=== PATIENT | female | born 1960 | race Caucasian/White ===

== ENCOUNTER 2017-01-06 14:12 | Outpatient (CLI) ==
[2017-01-06 15:15] LABS: BASOPHILS # (AUTO) 0.1 K/uL (0-0.2); BASOPHILS % (AUTO) 0.8 % (0.0-3.0); EOSINOPHILS # (AUTO) 0.2 K/ul (0.0-0.7); HEMATOCRIT 36.3 % (37.0-47.0); HEMOGLOBIN 12.3 g/dl (12.0-16.0); IMMATURE GRANULOCYTE % (AUTO) 0.3 % (0.0-5.0); LYMPHOCYTES # (AUTO) 3.6 K/uL (0.60-3.4); LYMPHOCYTES % (AUTO) 38.2 (10.0-50.0); MEAN CORPUSCULAR HEMOGLOBIN 28.3 pg (27.0-31.0); MEAN CORPUSCULAR HGB CONC 33.9 (31.8-35.4); MEAN CORPUSCULAR VOLUME 83.6 fl (81.0-99.0); MONOCYTES # (AUTO) 0.8 K/uL (0.4-2.0); MONOCYTES % (AUTO) 8.8 (0-10); NEUTROPHILS # (AUTO) 4.8 K/ul (2.0-6.9); NEUTROPHILS % (AUTO) 49.9; PLATELET COUNT 332 10^3/uL (140-440); RED BLOOD COUNT 4.34 10^6/ul (4.20-5.40); WHITE BLOOD COUNT 9.54 K/ul (4.6-10.2)
== END 2017-01-06 14:13 | disposition home or self-care (01) ==
LOC: LAB 14:12
PROVIDERS: ATTEND Internal Medicine Hematology & Oncology
DX: E06.3 Autoimmune thyroiditis (principal); D75.1 Secondary polycythemia
CPT/HCPCS: 36415; 84443; 85025

== ENCOUNTER 2017-01-27 15:17 | Outpatient (CLI) ==
[2017-01-27 16:21] LABS: BASOPHILS # (AUTO) 0.1 K/uL (0-0.2); BASOPHILS % (AUTO) 0.5 % (0.0-3.0); EOSINOPHILS # (AUTO) 0.1 K/ul (0.0-0.7); EOSINOPHILS % (AUTO) 0.9 % (0.0-7.0); HEMATOCRIT 39.3 % (37.0-47.0); HEMOGLOBIN 12.9 g/dl (12.0-16.0); IMMATURE GRANULOCYTE % (AUTO) 0.2 % (0.0-5.0); LYMPHOCYTES # (AUTO) 3.1 K/uL (0.60-3.4); LYMPHOCYTES % (AUTO) 32.8 (10.0-50.0); MEAN CORPUSCULAR HEMOGLOBIN 27.3 pg (27.0-31.0); MEAN CORPUSCULAR HGB CONC 32.8 (31.8-35.4); MEAN CORPUSCULAR VOLUME 83.3 fl (81.0-99.0); MONOCYTES # (AUTO) 0.7 K/uL (0.4-2.0); MONOCYTES % (AUTO) 7.6 (0-10); NEUTROPHILS # (AUTO) 5.4 K/ul (2.0-6.9); PLATELET COUNT 378 10^3/uL (140-440); RED BLOOD COUNT 4.72 10^6/ul (4.20-5.40); WHITE BLOOD COUNT 9.29 K/ul (4.6-10.2)
[2017-01-27 16:26] LABS: BILIRUBIN,URINE Negative (NEGATIVE); KETONES,URINE Negative (NEGATIVE); LEUKOCYTE ESTERASE ,URINE Negative (NEGATIVE); NITRITE,URINE Negative (NEGATIVE); PH,URINE 5.5 (5-9); PROTEIN,URINE Negative (NEGATIVE); URINE, BLOOD Negative (NEGATIVE)
[2017-01-27 16:45] LABS: ADD URINE MICROSCOPIC NO
[2017-01-27 16:58] LABS: ALBUMIN 3.8 g/dL (3.4-5.0); ALBUMIN/GLOBULIN RATIO 0.88; ANION GAP 14.5; BILIRUBIN,TOTAL 0.29 mg/dL (0.00-1.20); BUN/CREATININE RATIO 3.65; CHOL/HDL RATIO 4.3 (4.5-5.5); CREATININE 0.82 mg/dL (0.60-1.30); FERRITIN 11.82 ng/mL (4.63-204.00); POTASSIUM 3.5 mmol/L (3.5-5.10); TOTAL PROTEIN 8.1 g/dL (6.4-8.2)
== END 2017-01-27 15:18 | disposition home or self-care (01) ==
LOC: RHC 15:17
PROVIDERS: ATTEND General Practice
DX: D64.9 Anemia, unspecified (principal); Z79.899 Other long term (current) drug therapy
CPT/HCPCS: 36415; 80053; 80061; 81001; 82728; 84466; 85025

== ENCOUNTER 2017-02-19 09:22 | Outpatient (CLI) | payer OTHER ==
--- NOTE | 2017-02-20 11:05 | MAMMO ---
EXAM: Bilateral digital screening mammogram History: Screening Comparison: Bilateral mammogram 05/15/2010 Findings: MLO and CC views of bilateral breasts demonstrate scattered fibroglandular breast parench yma. Stable benign bilateral breast calcifications. There are no dominant masses, no suspicious mi crocalcifications and no architectural distortions Impression: Benign stable mammogram. Recommend followup routine screening mammography in 1 year. BIRADS 2
== END 2017-02-19 09:23 | disposition home or self-care (01) ==
LOC: RAD 09:22
PROVIDERS: ATTEND General Practice
DX: Z12.31 Encounter for screening mammogram for malignant neoplasm of breast (principal)
CPT/HCPCS: 77067

== ENCOUNTER 2017-04-01 07:42 | Outpatient (CLI) | payer OTHER ==
[2017-04-01 07:58] LABS: BASOPHILS # (AUTO) 0.1 K/uL (0-0.2); BASOPHILS % (AUTO) 0.7 % (0.0-3.0); EOSINOPHILS # (AUTO) 0.1 K/ul (0.0-0.7); EOSINOPHILS % (AUTO) 1.1 % (0.0-7.0); HEMATOCRIT 37.2 % (37.0-47.0); HEMOGLOBIN 12.3 g/dl (12.0-16.0); IMMATURE GRANULOCYTE % (AUTO) 0.4 % (0.0-5.0); LYMPHOCYTES # (AUTO) 1.7 K/uL (0.60-3.4); LYMPHOCYTES % (AUTO) 23.3 (10.0-50.0); MEAN CORPUSCULAR HEMOGLOBIN 26.6 pg (27.0-31.0); MEAN CORPUSCULAR HGB CONC 33.1 (31.8-35.4); MEAN CORPUSCULAR VOLUME 80.3 fl (81.0-99.0); MONOCYTES # (AUTO) 0.5 K/uL (0.4-2.0); MONOCYTES % (AUTO) 6.8 (0-10); NEUTROPHILS # (AUTO) 4.9 K/ul (2.0-6.9); NEUTROPHILS % (AUTO) 67.7; PLATELET COUNT 310 10^3/uL (140-440); RED BLOOD COUNT 4.63 10^6/ul (4.20-5.40); WHITE BLOOD COUNT 7.25 K/ul (4.6-10.2)
[2017-04-01 08:17] LABS: ALBUMIN 3.3 g/dL (3.4-5.0); ALBUMIN/GLOBULIN RATIO 0.83; ANION GAP 12.9; BILIRUBIN,TOTAL 0.42 mg/dL (0.00-1.20); BUN/CREATININE RATIO 2.73; CALCIUM 9.4 mg/dL (8.2-10.2); CREATININE 0.73 mg/dL (0.60-1.30); POTASSIUM 3.9 mmol/L (3.5-5.10); TOTAL PROTEIN 7.3 g/dL (6.4-8.2)
[2017-04-01 10:27] LABS: OCCULT BLOOD INTERNAL QC 1 INTERNAL QC VALID; OCCULT BLOOD INTERNAL QC 2 INTERNAL QC VALID; OCCULT BLOOD SAMPLE 1 POSITIVE (NEGATIVE); OCCULT BLOOD SAMPLE 2 NO SPECIMEN RECEIVED (NEGATIVE)
[2017-04-01 10:28] LABS: OCCULT BLOOD INTERNAL QC 3 INTERNAL QC VALID; OCCULT BLOOD SAMPLE 3 NO SPECIMEN RECEIVED (NEGATIVE)
== END 2017-04-01 07:43 | disposition home or self-care (01) ==
LOC: LAB 07:42
PROVIDERS: ATTEND Internal Medicine Hematology & Oncology
DX: R10.9 Unspecified abdominal pain (principal); D75.1 Secondary polycythemia
CPT/HCPCS: 36415; 80053; 82150; 82272; 83690; 85025

== ENCOUNTER 2017-04-07 13:44 | Outpatient (CLI) ==
[2017-04-08 14:00] LABS: BILIRUBIN,URINE Negative (NEGATIVE); KETONES,URINE Negative (NEGATIVE); LEUKOCYTE ESTERASE ,URINE Negative (NEGATIVE); NITRITE,URINE Negative (NEGATIVE); PROTEIN,URINE Negative (NEGATIVE); URINE, BLOOD Trace-intact (NEGATIVE)
[2017-04-08 14:01] LABS: OCCULT BLOOD INTERNAL QC 1 INTERNAL QC VALID; OCCULT BLOOD INTERNAL QC 2 INTERNAL QC VALID; OCCULT BLOOD INTERNAL QC 3 INTERNAL QC VALID; OCCULT BLOOD SAMPLE 1 NEGATIVE (NEGATIVE); OCCULT BLOOD SAMPLE 2 NO SPECIMEN RECEIVED (NEGATIVE); OCCULT BLOOD SAMPLE 3 NO SPECIMEN RECEIVED (NEGATIVE)
[2017-04-08 14:03] LABS: ADD URINE MICROSCOPIC YES
[2017-04-08 14:49] LABS: BASOPHILS # (AUTO) 0.1 K/uL (0-0.2); BASOPHILS % (AUTO) 0.6 % (0.0-3.0); EOSINOPHILS # (AUTO) 0.1 K/ul (0.0-0.7); EOSINOPHILS % (AUTO) 0.8 % (0.0-7.0); HEMATOCRIT 41.3 % (37.0-47.0); HEMOGLOBIN 13.1 g/dl (12.0-16.0); IMMATURE GRANULOCYTE % (AUTO) 0.1 % (0.0-5.0); LYMPHOCYTES # (AUTO) 1.9 K/uL (0.60-3.4); LYMPHOCYTES % (AUTO) 23.1 (10.0-50.0); MEAN CORPUSCULAR HGB CONC 31.7 (31.8-35.4); MONOCYTES # (AUTO) 0.4 K/uL (0.4-2.0); MONOCYTES % (AUTO) 4.9 (0-10); NEUTROPHILS # (AUTO) 5.9 K/ul (2.0-6.9); NEUTROPHILS % (AUTO) 70.5; PLATELET COUNT 374 10^3/uL (140-440); RED BLOOD COUNT 4.86 10^6/ul (4.20-5.40); WHITE BLOOD COUNT 8.39 K/ul (4.6-10.2)
== END 2017-04-08 13:45 | disposition home or self-care (01) ==
LOC: LAB 13:44
PROVIDERS: ATTEND General Practice
DX: R10.9 Unspecified abdominal pain (principal); R63.0 Anorexia; R53.83 Other fatigue
CPT/HCPCS: 36415; 81001; 82272; 85025

== ENCOUNTER 2017-05-05 09:45 | Day surgery (SDC) ==
[2017-05-05] MEDS ORDERED: VERSED ONE (11:45)
[2017-05-05] MEDS ORDERED: DIPRIVAN 20 ML VIAL IVP ONE (11:45)
[2017-05-05 13:14] VITALS: BP 165/89; TEMP 97.7
--- NOTE | 2017-05-06 10:32 | OP ---
INDICATIONS FOR PROCEDURE: 57-year-old female presents for endoscopy and colonoscopy exam. She was having some black stools and was found to be heme positive. She is asymptomatic now. Her stools are no longer heme positive she tells me. She is scheduled for endoscopy and colonoscopy investigation. She has a remote history of colon polps. MEDICATIONS: SEE ANESTHESIA NOTES. PROCEDURE: 1. ENDOSCOPY, ESOPHAGEAL BIOPSY 2. COLONOSCOPY, SNARE POLYPECTOMY REPORT: The risks, benefits, alternatives and limitations were discussed in detail with the patient. Informed consent was obtained. After adequate sedation was achieved, the video endoscope was introduced in the posterior pharynx and esophagus under direct vision and easily advanced down to the second portion of the duodenum. I then slowly withdrew. The duodenal mucosa appeared unremarkable as did the duodenal bulb. The antrum and body were relatively unremarkable. The scope was retroflexed to look at the cardia and fundus which was unremarkable. The scope was anteflexed and withdrawn back through the esophagus. There was a sliding 1 to 2 cm hiatal hernia. The GE junction was slightly variable. I biopsied it for histologic review. The esophagus was otherwise unremarkable. The patient tolerated the procedure well with stable vital signs and pulse oximetry throughout. The patient's bed was turned. A digital rectal exam revealed good tone, no masses. The colonoscope was introduced in the rectum, was advanced under direct visual guidance to the cecum. While advancing the scope, I encountered a 5 mm sessile polyp in the transverse colon. This was removed by snare technique. It was not retrieved. The cecum was identified by the appendiceal orifice and IC valve. I then slowly withdrew the scope in a circumferential manner examining the mucosa quite carefully. I looked on the proximal and distal side of folds and flexures as best as possible. She had a little bit of a tortuous colon in the sigmoid area. In the ascending area, there were 2 polyps, one about 4 mm size, the other one about 5 or 6 mm size, both sessile, both removed by snare technique. The larger one was retreived. The smaller one was destroyed. The remaining colon was unremarkable except on retroflex view of the anal canal you could see small non engorged internal hemorrhoids. The prep was good. The withdrawal time was 8 minutes and 29 seconds. The patient tolerated the procedure well with stable vital signs and pulse oximetry throughout. IMPRESSION: 1. 1 to 2 cm small sliding hiatal hernia 2. Regular GE junction biopsied as above 3. Three (3) colonic polyps removed 4. Small nonengorged internal hemorrhoid RECOMMENDATIONS: 1. Strict reflux precautions. 2. Await esophageal biopsy. If there is any evidence of Watkins's then I suggest a repeat endoscopy exam for surveillance in three years. 3. Await colon polyp pathology. 4. Repeat colonoscopy examination again in 3 years. 5. Office visit as needed. CC: DR. FELICIANO ESTES
== END 2017-05-05 13:21 | disposition home or self-care (01) ==
LOC: SURG 09:45
PROVIDERS: ATTEND Internal Medicine Gastroenterology
DX: K92.1 Melena (principal); Z86.010 Personal history of colon polyps; D12.2 Benign neoplasm of ascending colon; D13.1 Benign neoplasm of stomach; K63.5 Polyp of colon; K29.50 Unspecified chronic gastritis without bleeding; K44.9 Diaphragmatic hernia without obstruction or gangrene; K56.2 Volvulus; K64.8 Other hemorrhoids

== ENCOUNTER → 2017-07-02 | Outpatient (CLI) | payer OTHER | LOC: LAB 16:26 | PROVIDERS: ATTEND General Practice | DX: R05 Cough (principal); R63.0 Anorexia ==

== ENCOUNTER 2018-01-29 07:28 | Outpatient (CLI) | END 2018-01-29 07:29 | disposition home or self-care (01) | LOC: LAB 07:28 | PROVIDERS: ATTEND Internal Medicine Hematology & Oncology | DX: D75.1 Secondary polycythemia (principal) | CPT/HCPCS: 36415; 82728; 83540; 83550; 85008; 85025 ==

== ENCOUNTER 2018-04-23 08:27 | Outpatient (CLI) | payer OTHER | END 2018-04-23 08:28 | disposition home or self-care (01) | LOC: LAB 08:27 | PROVIDERS: ATTEND Internal Medicine Hematology & Oncology | DX: D75.1 Secondary polycythemia (principal) | CPT/HCPCS: 36415; 85025 ==

== ENCOUNTER 2018-08-17 07:13 | Outpatient (CLI) | END 2018-08-17 07:14 | disposition home or self-care (01) | LOC: LAB 07:13 | PROVIDERS: ATTEND Internal Medicine Hematology & Oncology | DX: D75.1 Secondary polycythemia (principal) | CPT/HCPCS: 36415; 80053; 82728; 83540; 83550; 85025 ==

== ENCOUNTER 2018-10-19 07:06 | Outpatient (CLI) | END 2018-10-19 07:07 | disposition home or self-care (01) | LOC: LAB 07:06 | PROVIDERS: ATTEND Internal Medicine Hematology & Oncology | DX: D75.1 Secondary polycythemia (principal) | CPT/HCPCS: 36415; 85025 ==

== ENCOUNTER 2018-10-27 09:24 | Outpatient (CLI) | END 2018-10-27 09:25 | disposition home or self-care (01) | LOC: CAR 09:24 | PROVIDERS: ATTEND Nurse Practitioner Family | DX: R07.89 Other chest pain (principal); R53.1 Weakness | CPT/HCPCS: 36415; 80053; 84443; 93005; 93010 ==

== ENCOUNTER 2018-10-27 11:45 | Outpatient (CLI) | END 2018-10-27 11:46 | disposition home or self-care (01) | LOC: RHC-LAB 11:45 | PROVIDERS: ATTEND Nurse Practitioner Family | DX: R07.89 Other chest pain (principal); R53.1 Weakness | CPT/HCPCS: 36415; 80053; 84443 ==

== ENCOUNTER 2023-12-04 14:43 | Observation (INO) ==
[2023-12-04 15:36] LABS: BASOPHILS % (AUTO) 0.4 % (0.0-3.0); EOSINOPHILS % (AUTO) 0.1 % (0.0-7.0); HEMOGLOBIN 10.6 g/dl (12.0-16.0); IMMATURE GRANULOCYTE % (AUTO) 0.3 % (0.0-5.0); LYMPHOCYTES # (AUTO) 1.1 K/uL (0.60-3.4); LYMPHOCYTES % (AUTO) 11.5 (10.0-50.0); MEAN CORPUSCULAR HEMOGLOBIN 26.7 pg (27.0-31.0); MEAN CORPUSCULAR HGB CONC 33.1 (31.8-35.4); MEAN CORPUSCULAR VOLUME 80.6 fl (81.0-99.0); MONOCYTES # (AUTO) 0.8 K/uL (0.4-2.0); MONOCYTES % (AUTO) 8.7 (0-10); NEUTROPHILS # (AUTO) 7.4 K/ul (2.0-6.9); PLATELET COUNT 381 10^3/uL (140-440); RDW COEFFICIENT OF VARIATION 14.4 % (11.6-14.8); RED BLOOD COUNT 3.97 10^6/ul (4.20-5.40); WHITE BLOOD COUNT 9.38 K/ul (4.6-10.2)
[2023-12-04 15:41] LABS: BILIRUBIN,URINE Negative (NEGATIVE); CLARITY,URINE Clear (CLEAR); COLOR,URINE Yellow (YELLOW); GLUCOSE, URINE (UA) Negative (NEGATIVE); KETONES,URINE Negative (NEGATIVE); LEUKOCYTE ESTERASE ,URINE Negative (NEGATIVE); NITRITE,URINE Negative (NEGATIVE); PROTEIN,URINE 1+ (NEGATIVE); URINE, BLOOD Trace-intact (NEGATIVE); UROBILINOGEN,URINE 0.2 (0.2)
--- NOTE | 2023-12-04 15:46 | ED.PDOC ---
General ED Provider: Dr. ARA THAPA MD Chief Complaint: Weakness Stated Complaint: 63 years old female with history of hypertension, dyslipidemia, anxiety coming to the emergency room for generalized weakness. As per patient she is alcohol that she drinks 9 beers per day last drink was 2 beers earlier this morning. Patient has been feeling weak with 1 episode of nonbloody nonbilious vomiting and 2 episodes of nonbloody diarrhea earlier this morning. Otherwise there is no chest pain, shortness of breath, fever, changes in the urine. Time Seen by Provider: 12/04/23 14:48 Information Source: Patient Primary Care Provider: NAVA CHENEY MD Nursing and Triage Documentation Reviewed and Agree: Yes What is Opioid Naive?: *Opioid Naive implies the patient is not already taking opioids or not chronically receiving opioids on a daily basis. *PRN dosing is not "usually" associated with tolerance. *Patients are at higher risk of over-sedation and aspiration. What is Opioid Tolerant?: *Opioid Tolerance implies less than the expected response to an opioid. *Acquired tolerance is defined by the patient taking 60mg of oral morphine daily (or equianalgesic dose of another opioid) for 1 week or more. *Often associated with chronic pain. *May take more than usual dose to achieve desired pain control. Review of Systems Review Of Systems Constitutional: Reports No symptoms All Other Systems: Reviewed and Negative [facility] Medical History (Updated 12/04/23 @ 16:33 by ARA THAPA MD) Mammogram declined Z53.20 - Procedure and treatment not carried out because of patient's decision for unspecified reasons (ICD-10) Need for immunization against influenza Z23 - Encounter for immunization (ICD-10) Diagnostic procedure declined Z53.20 - Procedure and treatment not carried out because of patient's decision for unspecified reasons (ICD-10) Elevated TSH R79.89 - Other specified abnormal findings of blood chemistry (ICD-10) Colonoscopy refused Z53.20 - Procedure and treatment not carried out because of patient's decision for unspecified reasons (ICD-10) Rib fractures S22.39XA - Fracture of one rib, unspecified side, initial encounter for closed fracture (ICD-10) Left upper quadrant abdominal pain R10.12 - Left upper quadrant pain (ICD-10) Nausea vomiting and diarrhea will gets labs today and advised CT scan abdomen/pelvis with contrast after getting authorization and scheduling the CT scan the patient declined waiting until 1pm today to get the scan. She had eaten this morning, so needed to be more NPO for contrasted study. She declined CT scan but said she would get labs She was advised to eat a more bland diet-crackers, toast, 7up advised to refrain from alcohol advised to get OTC Probiotic-take as directed on bottle. 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 SISTER No problems noted. Mother No problems noted. BROTHER No problems noted. 19 CHILD No problems noted. Social History Smoking and tobacco status: Current every day smoker Tobacco type: cigarettes Smoking cigarettes per day: 4 Tobacco: How many years used: 40 Passive smoking exposure: Yes Second hand smoke exposure: Yes Smoking risk assessment performed: No Alcohol intake: current Alcohol intake frequency: 3 or more drinks per day Alcohol type: beer Substance use type: does not use Counseling given: No Marcy/baptist: Johana Special marcy needs: No Agree to transfusion: Yes Adopted: No Caregiver/support person: Yes Household members: none Housing: house Marital status: S SINGLE Lives independently: Yes Daycare: no daycare Highest education level completed: Associate degree: occupational, technical, vocational program Financial difficulty paying for basics: not applicable service: No Current occupational status: unemployed Current occupational exposures/hazards: No Pets and animals: No History of recent travel: No Sexually active: No Do you think of yourself as: straight/heterosexual Current gender identity: female Seatbelt use: always Helmet use: No (N/A) Drives intoxicated or rides with 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 Water heater temperature set < 120 degrees: Yes Working smoke detector in home: Yes Fire extinguisher in home: Yes Carbon monoxide detector in home: Yes Firearms in home: Yes Firearms unloaded and locked: Yes Surgical History History of surgery L5 fusion Z98.890 - Other specified postprocedural states (ICD-10) Status post tonsillectomy Z90.89 - Acquired absence of other organs (ICD-10) Lumpectomy of breast RIGHT BREAST 1969' Status post hysterectomy Z90.710 - Acquired absence of both cervix and uterus (ICD-10) History of breast biopsy Z98.890 - Other specified postprocedural states (ICD-10) Status post appendectomy Z90.49 - Acquired absence of other specified parts of digestive tract (ICD- 10) Status post tonsillectomy and adenoidectomy Z90.89 - Acquired absence of other organs (ICD-10) Female Reproductive History Menstrual Hx Hysterectomy: Yes Hx Tubal Ligation: No Physical Exam Physical Exam Appearance: Reports No pain distress Respiratory: Reports Airway patent, Breath sounds clear and Breath sounds equal Cardiovascular: Reports RRR, Pulses normal, No rub and No murmur GI/: Reports Soft, Nontender and No masses Musculoskeletal: Reports Normal strength and ROM intact Skin: Reports Warm and Normal color Neurological: Reports Sensation intact and Motor intact Psychiatric: Reports Affect appropriate Course Course 12/04/23 15:26 12/04/23 15:26 Orders, Labs, Meds: Lab Review 12/04/23 12/04/23 15:26 15:32 WBC 9.38 RBC 3.97 L Hgb 10.6 L Hct 32.0 L MCV 80.6 L MCH 26.7 L MCHC 33.1 RDW Coeff of Mckenna 14.4 Plt Count 381 Immature Gran % (Auto) 0.3 Neut % (Auto) 79.0 H Lymph % (Auto) 11.5 Mckenzie % (Auto) 8.7 Eos % (Auto) 0.1 Baso % (Auto) 0.4 Neut # (Auto) 7.4 H Lymph # (Auto) 1.1 Mckenzie # (Auto) 0.8 Eos # (Auto) 0.0 Baso # (Auto) 0.0 Immature Gran # (Auto) 0.0 Sodium 122.4 L Potassium 4.04 Chloride 88.5 L Carbon Dioxide 25.8 Anion Gap 12.14 BUN 4.5 L Creatinine 0.73 Estimated GFR (MDRD) 80.00 BUN/Creatinine Ratio 6.16 Glucose 117.7 H Calcium 9.45 Total Bilirubin 0.48 AST 93.1 H ALT 51.8 H Alkaline Phosphatase 71.9 Total Protein 8.01 Albumin 4.40 Globulin 3.61 Albumin/Globulin Ratio 1.21 Urine Color Yellow Urine Clarity Clear Urine pH 6.0 Ur Specific Allred 1.025 Urine Protein 1+ H Urine Glucose (UA) Negative Urine Ketones Negative Urine Blood Trace-intact H Urine Nitrite Negative Urine Bilirubin Negative Urine Urobilinogen 0.2 Ur Leukocyte Esterase Negative Urine Microscopic RBC 2-5 Ur Squamous Epith Cells 2-5 Hyaline Casts 5-10 Urine Mucus 2+ Plasma/Serum Alcohol < 10.0 Orders Category Date Time Status ADMIT OBSERVATION [PLACE PATIENT OBSERVATION] .TO ADMISSION 12/04/23 16:12 Active MEDSURG (MONITORED BED) ACTIVITY .Early Mobilization for VTE Prevention CARE 12/04/23 16:06 Active INTAKE & OUTPUT Q8HR CARE 12/04/23 16:06 Active IV ACCESS ONCE CARE 12/04/23 16:07 Active TELEMETRY MONITORING TELE CARE 12/04/23 16:13 Active VITAL SIGNS Q4HR CARE 12/04/23 16:07 Active REGULAR DIET DIETARY 12/04/23 Dinner Ordered ALCOHOL LEVEL [BLOOD ALCOHOL] Stat LAB 12/04/23 15:26 Completed BMP [BASIC METABOLIC PANEL] Timed LAB 12/04/23 20:00 Ordered CBC W/ AUTO DIFF DAILY@0600 LAB 12/05/23 06:00 Ordered CBC W/ AUTO DIFF DAILY@0600 LAB 12/06/23 06:00 Ordered CBC W/ AUTO DIFF Stat LAB 12/04/23 15:26 Completed CMP [COMPREHENSIVE METABOLIC PANEL] Stat LAB 12/04/23 15:26 Completed COMPREHENSIVE METABOLIC PANEL DAILY@0600 LAB 12/05/23 06:00 Ordered COMPREHENSIVE METABOLIC PANEL DAILY@0600 LAB 12/06/23 06:00 Ordered OSMOLALITY,URINE Stat LAB 12/04/23 15:26 Received SERUM OSMOLALITY Stat LAB 12/04/23 15:26 Received URINALYSIS C & S IF INDICATED Stat LAB 12/04/23 15:32 Completed Folic Acid Meds 12/04/23 17:00 Active 1 mg PO DAILY Ondansetron HCl/Pf [Zofran 4 mg/2 ml] Meds 12/04/23 16:07 Discontinued 4 mg IVP ONCE STA Ondansetron HCl/Pf [Zofran 4 mg/2 ml] Meds 12/04/23 16:06 Active 4 mg IVP Q6H PRN Pantoprazole Sodium [Protonix] Meds 12/04/23 16:07 Discontinued 40 mg IVP ONCE ONE Pantoprazole Sodium [Protonix] Meds 12/05/23 08:00 Active 40 mg PO BIDAC2 Sodium Chloride 0.9% [Sodium Chloride] 1,000 ml Meds 12/04/23 16:07 Active IV 125 mls/hr Sodium Chloride 0.9% [Sodium Chloride] 1,000 ml Meds 12/04/23 16:30 Active IV 125 mls/hr Vitamin B-1 [Thiamine] Meds 12/03/23 17:00 Discontinued 100 mg PO ONCE ONE Vitamin B-1 [Thiamine] Meds 12/04/23 16:30 Once 100 mg PO ONCE ONE Medications Generic Name Dose Route Start Last Admin Trade Name Freq PRN Reason Stop Dose Admin Folic Acid 1 mg 12/04/23 17:00 Folic Acid 1 Mg Tablet PO DAILY [facility] Sodium Chloride 1,000 mls @ 125 mls/hr 12/04/23 16:07 Sodium Chloride IV 12/05/23 00:06 .Q8H ONE Sodium Chloride 1,000 mls @ 125 mls/hr 12/04/23 16:30 Sodium Chloride IV .Q8H [facility] Ondansetron HCl 4 mg 12/04/23 16:06 Ondansetron Hcl/Pf 4 Mg/2 Ml Sdv IVP Q6H PRN Nausea / Vomiting Pantoprazole Sodium 40 mg 12/05/23 08:00 Pantoprazole Sodium 40 Mg Tablet.Dr PO BIDAC2 BRANDI Thiamine HCl 100 mg 12/04/23 16:30 Vitamin B-1 100 Mg Tablet PO 12/04/23 16:31 ONCE ONE Discontinued Medications Generic Name Dose Route Start Last Admin Trade Name Freq PRN Reason Stop Dose Admin Ondansetron HCl 4 mg 12/04/23 16:07 Ondansetron Hcl/Pf 4 Mg/2 Ml Sdv IVP 12/04/23 16:08 ONCE STA Pantoprazole Sodium 40 mg 12/04/23 16:07 Pantoprazole Sodium 40 Mg Vial IVP 12/04/23 16:08 ONCE ONE Thiamine HCl 100 mg 12/03/23 17:00 Vitamin B-1 100 Mg Tablet PO 12/03/23 17:01 ONCE ONE Vital Signs: Temp Pulse Resp BP Pulse Ox 12/04/23 15:03 97.8 F 99 15 116/74 97 Patient with hyponatremia sodium level 122 and possible viral gastroenteritis patient was started on NS at 125 mill per hour and was given Zofran and Protonix IV. Patient will need to be admitted for further IV fluids and repeat BMP called hospitalist on-call Dioni discussed the patient case with her and she agreed to admit the patient under her services Discharge Plan Discharge Patient Disposition: ADMITTED INPATIENT Discharge Problem: Hyponatremia, Viral gastroenteritis Did you review [place] PODIATRY DOCTOR for ALL controlled substances?: Not Applicable ED Provider: ARA THAPA Condition: Stable
[2023-12-04 15:51] LABS: ALANINE AMINOTRANSFERASE 51.8 U/L (0-35); ALKALINE PHOSPHATASE 71.9 U/L (53-141); ASPARTATE AMINO TRANSFERASE 93.1 U/L (14-36); BILIRUBIN,TOTAL 0.48 mg/dL (0.2-1.3); BLOOD UREA NITROGEN 4.5 mg/dL (7-17); CALCIUM 9.45 mg/dL (8.4-10.2); CARBON DIOXIDE 25.8 mmol/L (22-30.0); CHLORIDE 88.5 mmol/L (98-107); CREATININE 0.73 mg/dL (0.60-1.30); GLUCOSE 117.7 mg/dL (74-106); POTASSIUM 4.04 mmol/L (3.5-5.1); SODIUM 122.4 mmol/L (134.5-145); TOTAL PROTEIN 8.01 g/dL (6.3-8.2)
[2023-12-04 15:52] LABS: BLOOD ALCOHOL < 10.0 mg/dL (0.0-50.0)
[2023-12-04] MEDS ORDERED: ZOFRAN 4 MG/2 ML IVP PRN (16:06)
[2023-12-04 16:08] LABS: MUCUS,URINE 2+ (NOT PRESENT)
[2023-12-04] MEDS: ZOFRAN 4 MG/2 ML IVP STA (16:33)
[2023-12-04] MEDS: SODIUM CHLORIDE 1,000 ML IV ONE (16:33)
[2023-12-04] MEDS: PROTONIX IVP ONE (16:33)
[2023-12-04 16:46] LABS: SARS COV-2 RNA RAPID NAAT NEGATIVE (NEGATIVE)
[2023-12-04] MEDS: SODIUM CHLORIDE 1,000 ML IV SCH (17:14)
[2023-12-04] MEDS: THIAMINE PO ONE ×2 (17:14→17:17)
[2023-12-04] MEDS: FOLIC ACID PO SCH (17:18)
[2023-12-04 17:25] VITALS: BMI 21.1
[2023-12-04 20:25] LABS: BLOOD UREA NITROGEN 4.8 mg/dL (7-17); CALCIUM 9.11 mg/dL (8.4-10.2); CARBON DIOXIDE 27.4 mmol/L (22-30.0); CREATININE 0.74 mg/dL (0.60-1.30); GLUCOSE 100.2 mg/dL (74-106); POTASSIUM 3.9 mmol/L (3.5-5.1); SODIUM 125.6 mmol/L (134.5-145)
[2023-12-04] MEDS ORDERED: VENTOLIN HFA IH PRN ×2 (21:44→21:56)
[2023-12-04] MEDS: COZAAR PO SCH (22:00)
[2023-12-04] MEDS ORDERED: ATIVAN PO PRN (22:52)
[2023-12-04] MEDS ORDERED: ATIVAN IVP PRN ×2 (22:52)
[2023-12-04] MEDS: ATIVAN PO PRN (23:12)
[2023-12-05 05:13] LABS: BASOPHILS # (AUTO) 0.1 K/uL (0-0.2); BASOPHILS % (AUTO) 0.8 % (0.0-3.0); EOSINOPHILS # (AUTO) 0.1 K/ul (0.0-0.7); EOSINOPHILS % (AUTO) 0.8 % (0.0-7.0); HEMATOCRIT 31.1 % (37.0-47.0); HEMOGLOBIN 9.8 g/dl (12.0-16.0); IMMATURE GRANULOCYTE % (AUTO) 0.3 % (0.0-5.0); MEAN CORPUSCULAR HEMOGLOBIN 26.1 pg (27.0-31.0); MEAN CORPUSCULAR HGB CONC 31.5 (31.8-35.4); MEAN CORPUSCULAR VOLUME 82.9 fl (81.0-99.0); MONOCYTES # (AUTO) 0.8 K/uL (0.4-2.0); NEUTROPHILS # (AUTO) 3.1 K/ul (2.0-6.9); NEUTROPHILS % (AUTO) 51.1 % (42.2-75.2); PLATELET COUNT 373 10^3/uL (140-440); RDW COEFFICIENT OF VARIATION 14.5 % (11.6-14.8); RED BLOOD COUNT 3.75 10^6/ul (4.20-5.40)
[2023-12-05 05:30] LABS: ALANINE AMINOTRANSFERASE 42.8 U/L (0-35); ALBUMIN 3.71 g/dL (3.5-5.0); ALKALINE PHOSPHATASE 60.7 U/L (53-141); ASPARTATE AMINO TRANSFERASE 85.3 U/L (14-36); BILIRUBIN,TOTAL 0.5 mg/dL (0.2-1.3); BLOOD UREA NITROGEN 3.9 mg/dL (7-17); CALCIUM 8.76 mg/dL (8.4-10.2); CARBON DIOXIDE 27.7 mmol/L (22-30.0); CHLORIDE 97.7 mmol/L (98-107); CREATININE 0.71 mg/dL (0.60-1.30); GLUCOSE 87.5 mg/dL (74-106); POTASSIUM 3.8 mmol/L (3.5-5.1); SODIUM 129.7 mmol/L (134.5-145); TOTAL PROTEIN 6.98 g/dL (6.3-8.2)
[2023-12-05] MEDS: PROTONIX PO SCH (07:40)
[2023-12-05] MEDS: ASPIRIN EC PO SCH (08:03)
[2023-12-05] MEDS: FOLIC ACID PO SCH (08:03)
[2023-12-05] MEDS: VITAMIN D PO SCH (08:04)
[2023-12-05] MEDS: FLORASTOR PO SCH (08:08)
[2023-12-05] MEDS: THIAMINE PO SCH (08:09)
[2023-12-05] MEDS: LIPITOR PO SCH (08:09)
[2023-12-05] MEDS: MULTIVITAMIN TABLET PO SCH (08:10)
[2023-12-05] MEDS: LEXAPRO PO SCH (08:11)
[2023-12-05] MEDS ORDERED: PRILOSEC PO PRN (09:00)
[2023-12-05] MEDS: COZAAR PO ONE (09:21)
--- NOTE | 2023-12-05 09:34 | PCM ---
Date of Service Date Seen by Provider: 12/05/23 Time Seen by Provider: 09:00 Admit Day/Time Admission Date: 12/04/23 Reason for Admission Chief Complaint: HYPONATREMIA Hospital Provider Hospital Provider: TWYLA NGUYEN, [facility] [place] Primary Care Physician Primary Care Physician: NAVA CHENEY MD History of Present Illness History of Present Illness: 63 yo female presented to the ER with complaints of weakness. Has pmh of etoh abuse. Reports that yesterday she developed sudden onset N/V/D. Had some muscle pain in lower abdomen from vomiting when she came in. Sodium was found to be 122. Patient states she has not had abdominal pain since, no fever, or other symptoms. States that she is still somewhat nauseated from time to time and has no appetite. Also suffers from GERD and takes carafate and prilosec. Denies any blood in vomit or stool. Admitted to med/surg observation. Case Discussed With Case Discussed With: Patient's case was discussed with the ER Physicians, Dr. Mc [facility] Medical History Mammogram declined Z53.20 - Procedure and treatment not carried out because of patient's decision for unspecified reasons (ICD-10) Need for immunization against influenza Z23 - Encounter for immunization (ICD-10) Diagnostic procedure declined Z53.20 - Procedure and treatment not carried out because of patient's decision for unspecified reasons (ICD-10) Elevated TSH R79.89 - Other specified abnormal findings of blood chemistry (ICD-10) Colonoscopy refused Z53.20 - Procedure and treatment not carried out because of patient's decision for unspecified reasons (ICD-10) Rib fractures S22.39XA - Fracture of one rib, unspecified side, initial encounter for closed fracture (ICD-10) Left upper quadrant abdominal pain R10.12 - Left upper quadrant pain (ICD-10) Nausea vomiting and diarrhea will gets labs today and advised CT scan abdomen/pelvis with contrast after getting authorization and scheduling the CT scan the patient declined waiting until 1pm today to get the scan. She had eaten this morning, so needed to be more NPO for contrasted study. She declined CT scan but said she would get labs She was advised to eat a more bland diet-crackers, toast, 7up advised to refrain from alcohol advised to get OTC Probiotic-take as directed on bottle. R11.2 - Nausea with vomiting, unspecified (ICD-10) R19.7 - Diarrhea, unspecified (ICD-10) EtOH dependence F10.20 - Alcohol dependence, uncomplicated (ICD-10) Chronic prescription benzodiazepine use Z79.899 - Other adjunct faculty for medical terminology (current) drug therapy (ICD-10) Chronic prescription opiate use Z79.891 - alf (current) use of opiate analgesic (ICD-10) Ulcer 2013 Polycythemia Cortes yearly D75.1 - Secondary polycythemia (ICD-10) Surgical History History of surgery L5 fusion Z98.890 - Other specified postprocedural states (ICD-10) Status post tonsillectomy Z90.89 - Acquired absence of other organs (ICD-10) Lumpectomy of breast RIGHT BREAST 1970'S Status post hysterectomy Z90.710 - Acquired absence of both cervix and uterus (ICD-10) History of breast biopsy Z98.890 - Other specified postprocedural states (ICD-10) Status post appendectomy Z90.49 - Acquired absence of other specified parts of digestive tract (ICD- 10) Status post tonsillectomy and adenoidectomy Z90.89 - Acquired absence of other organs (ICD-10) Family History FATHER Cardiac disease Hypertension Grandfather/Grandmother Cardiac disease Grandfather/Grandmother No problems noted. SISTER No problems noted. Mother Diabetes BROTHER Cardiac disease 19 CHILD No problems noted. Social History Smoking and tobacco status: Current every day smoker Tobacco type: cigarettes Smoking cigarettes per day: 4 Tobacco: How many years used: 40 Passive smoking exposure: Yes Second hand smoke exposure: Yes Smoking risk assessment performed: No Alcohol intake: current Alcohol intake frequency: 3 or more drinks per day Alcohol type: beer Substance use type: does not use Counseling given: No Marcy/orthodoxy: Johana Special marcy needs: No Agree to transfusion: Yes Adopted: No Caregiver/support person: Yes Household members: none Housing: house Marital status: S SINGLE Lives independently: Yes Daycare: no daycare Highest education level completed: Associate degree: occupational, technical, vocational program Financial difficulty paying for basics: not applicable service: No Current occupational status: unemployed Current occupational exposures/hazards: No Pets and animals: No History of recent travel: No Sexually active: No Do you think of yourself as: straight/heterosexual Current gender identity: female Seatbelt use: always Helmet use: No (N/A) Drives intoxicated or rides with intoxicated driver guide: No Water heater temperature set < 120 degrees: Yes Working smoke detector in home: Yes Fire extinguisher in home: Yes Carbon monoxide detector in home: Yes Firearms in home: Yes Firearms unloaded and locked: Yes Allergies Allergies Allergy/AdvReac Type Severity Reaction Status Date / Time prednisone Allergy Unknown Unknown Verified 07/20/23 09:10 adhesive tape AdvReac Intermediate Rash Verified 07/20/23 09:10 Current Medications Home Medications aspirin 81 mg tablet,delayed release 81 mg PO DAILY 01/26/15 [History Confirmed 12/04/23 Last Taken Unknown] omeprazole 20 mg capsule,delayed release 20 mg PO DIRECTED PRN Abdominal Discomfort 09/24/18 [History Confirmed 12/04/23 Last Taken Unknown] albuterol sulfate 90 mcg/actuation aerosol inhaler (ProAir HFA) 8.5 g inhalation 3-4XD PRN Wheezing 11/29/19 [History Confirmed 12/04/23 Last Taken Unknown] folic acid 1 mg tablet 1 mg PO QDAY 03/10/22 [History Confirmed 12/04/23 Last Taken Unknown] multivitamin 1 tab PO QAM 03/10/22 [History Confirmed 12/04/23 Last Taken Unknown] vitamin B complex (B Complex-Vitamin B12 tablet) 1 tab PO QDAY 03/10/22 [History Confirmed 12/04/23 Last Taken Unknown] escitalopram oxalate 5 mg tablet See Rx Instructions .Route .COMPLEX #90 tabs 12/22/22 [Rx Confirmed 12/04/23 Last Taken Unknown] atorvastatin 40 mg tablet 40 mg PO QDAY #90 tabs 01/20/23 [Rx Confirmed 12/04/23 Last Taken Unknown] thiamine HCl (vitamin B1) 100 mg tablet 100 mg PO QDAY #90 tabs 01/20/23 [Rx Confirmed 12/04/23 Last Taken Unknown] cholecalciferol (vitamin D3) 50 mcg (2,000 unit) capsule 50 mcg PO QDAY 07/20/23 [History Confirmed 12/04/23 Last Taken Unknown] losartan 50 mg tablet See Rx Instructions .Route .COMPLEX #180 tabs 10/12/23 [Rx Confirmed 12/04/23 Last Taken Unknown] Lactobacillus acidophilus 10 billion cell capsule (Probiotic) 100 mmu cells PO DAILY 12/04/23 [History Confirmed 12/04/23 Last Taken Unknown] Home Albuterol Sulfate (Albuterol Sulfate 8 Gm Inhaler) 2 puff IH QID PRN PRN Reason: wheezing Aspirin (Aspirin 81 Mg Tablet.Dr) 81 mg PO DAILYWM2 [facility] Atorvastatin Calcium (Atorvastatin Calcium 20 Mg Tablet) 40 mg PO DAILY [facility] Last Admin: 12/05/23 08:09 Dose: 40 mg Cholecalciferol (Cholecalciferol (Vitamin D3) 1,000 Unit (25 Mcg) Tablet) 2,000 unit PO DAILY [facility] Last Admin: 12/05/23 08:04 Dose: 2,000 unit Escitalopram Oxalate (Escitalopram Oxalate 10 Mg Tablet) 5 mg PO DAILY [facility] Last Admin: 12/05/23 08:11 Dose: 5 mg Folic Acid (Folic Acid 1 Mg Tablet) 1 mg PO DAILY [facility] Last Admin: 12/05/23 08:03 Dose: 1 mg Sodium Chloride (Sodium Chloride) 1,000 mls @ 125 mls/hr IV .Q8H [facility] Last Admin: 12/05/23 09:33 Dose: 125 mls/hr Lorazepam (Lorazepam 1 Mg Tablet) 2 mg PO Q1HR PRN PRN Reason: Withdrawal Lorazepam (Lorazepam 1 Mg Tablet) 1 mg PO Q2HR PRN PRN Reason: Withdrawal Last Admin: 12/04/23 23:12 Dose: 1 mg Lorazepam (Lorazepam Inj 2 Mg/Ml Vial) 1 mg IVP Q2HR PRN PRN Reason: Withdrawal Lorazepam (Lorazepam Inj 2 Mg/Ml Vial) 2 mg IVP Q1HR PRN PRN Reason: Withdrawal Losartan Potassium (Losartan Potassium 25 Mg Tablet) 50 mg PO BID [facility] Multivitamins (Multivitamin 1 Tab) 1 tab PO DAILY [facility] Last Admin: 12/05/23 08:10 Dose: 1 tab Ondansetron HCl (Ondansetron Hcl/Pf 4 Mg/2 Ml Sdv) 4 mg IVP Q6H PRN PRN Reason: Nausea / Vomiting Pantoprazole Sodium (Pantoprazole Sodium 40 Mg Tablet.) 40 mg PO BIDAC2 [facility] Last Admin: 12/05/23 07:40 Dose: 40 mg Saccharomyces Boulardii (Saccharomyces Boulardii 250 Mg Capsule) 250 mg PO DAILY [facility] Last Admin: 12/05/23 08:08 Dose: 250 mg Thiamine HCl (Vitamin B-1 100 Mg Tablet) 100 mg PO DAILY [facility] Last Admin: 12/05/23 08:09 Dose: 100 mg Discontinued Medications Albuterol Sulfate (Albuterol Sulfate 8 Gm Inhaler) 1 puff IH QID PRN PRN Reason: wheezing Aspirin (Aspirin 81 Mg Tablet.) 81 mg PO DAILY [facility] Last Admin: 12/05/23 08:03 Dose: 81 mg Folic Acid (Folic Acid 1 Mg Tablet) 1 mg PO DAILY [facility] Last Admin: 12/04/23 17:18 Dose: 1 mg Sodium Chloride (Sodium Chloride) 1,000 mls @ 125 mls/hr IV .Q8H ONE Stop: 12/05/23 00:06 Last Admin: 12/04/23 16:33 Dose: 125 mls/hr Losartan Potassium (Losartan Potassium 25 Mg Tablet) 25 mg PO BID [facility] Last Admin: 12/05/23 08:05 Dose: 25 mg Losartan Potassium (Losartan Potassium 25 Mg Tablet) 25 mg PO ONCE ONE Stop: 12/05/23 09:01 Last Admin: 12/05/23 09:21 Dose: 25 mg Omeprazole (Omeprazole 20 Mg Capsule.) 20 mg PO DAILY PRN PRN Reason: abdominal discomfort Ondansetron HCl (Ondansetron Hcl/Pf 4 Mg/2 Ml Sdv) 4 mg IVP ONCE STA Stop: 12/04/23 16:08 Last Admin: 12/04/23 16:33 Dose: 4 mg Pantoprazole Sodium (Pantoprazole Sodium 40 Mg Vial) 40 mg IVP ONCE ONE Stop: 12/04/23 16:08 Last Admin: 12/04/23 16:33 Dose: 40 mg Thiamine HCl (Vitamin B-1 100 Mg Tablet) 100 mg PO ONCE ONE Stop: 12/03/23 17:01 Last Admin: 12/04/23 17:14 Dose: Not Given Thiamine HCl (Vitamin B-1 100 Mg Tablet) 100 mg PO ONCE ONE Stop: 12/04/23 16:31 Last Admin: 12/04/23 17:17 Dose: 100 mg Opioid Naive vs. Tolerant What is Opioid Naive?: *Opioid Naive implies the patient is not already taking opioids or not chronically receiving opioids on a daily basis. *PRN dosing is not "usually" associated with tolerance. *Patients are at higher risk of over-sedation and aspiration. What is Opioid Tolerant?: *Opioid Tolerance implies less than the expected response to an opioid. *Acquired tolerance is defined by the patient taking 60mg of oral morphine daily (or equianalgesic dose of another opioid) for 1 week or more. *Often associated with chronic pain. *May take more than usual dose to achieve desired pain control. Review of Systems Constitutional: Reports Weakness Head: Reports Normocephalic Eyes: Reports No symptoms Ears: Reports No symptoms Nose: Reports No symptoms Mouth: Reports No symptoms Throat: Reports No symptoms Cardiovascular: Reports No symptoms Respiratory: Reports No symptoms Gastrointestinal: Reports Nausea, Vomiting and Diarrhea Genitourinary: Reports No Symptoms Musculoskeletal: Reports No symptoms Endocrine: Reports No symptoms Hematology: Reports No symptoms Immunology: Reports No symptoms Neurological: Reports No symptoms Psychiatric: Reports No symptoms Physical examination Most Recent Vital Signs: Most Recent Vital Signs Temperature 98.3 F 12/05/23 06:00 Temperature Source Temporal Artery Scan 12/05/23 06:00 Temperature Source Infrared 12/04/23 15:03 Pulse Rate 80 12/05/23 06:00 Respiratory Rate 16 12/05/23 08:00 Blood Pressure 161/73 H 12/05/23 06:00 Blood Pressure Mean 102 12/05/23 06:00 Blood Pressure Left Arm 163/74 12/04/23 16:54 Blood Pressure Location Left Arm 12/05/23 06:00 Blood Pressure Position Supine 12/05/23 02:00 O2 Sat by Pulse Oximetry 97 12/05/23 06:00 Oxygen Delivery Method Room Air 12/05/23 09:00 Height 5 ft 8 in 12/04/23 16:54 Weight 139 lb 12/04/23 17:26 Telemetry Type Remote Telemetry 12/05/23 07:00 Telemetry Monitoring Continues 12/05/23 01:00 Telemetry Heart Rate 78 12/05/23 07:00 EKG VA Interval 0.26 H 12/05/23 07:00 EKG QRS Interval 0.07 12/05/23 07:00 Telemetry Strip Reading SN with 1st degree AV Block 12/05/23 07:00 Appearance: Positive No Apparent Distress and Alert and Oriented x3 Skin: Positive Warm and Good Turgor HEENT: Positive Normocephalic and PERRLA Neck: Positive Supple and Midline Trachea Chest/Lungs: Positive Symmetrical With Equal Breath Sounds, Clear to Auscultation Bilaterally and Good Air Movement all 4 Lung Stuart Heart: Positive RRR and Pulses Normal GI/: Positive Soft, Nontender, Bowel Sounds Normal and No Distention Musculoskeletal: Positive Normal Gait and Station Extremities: Positive Intact Peripheral Pulses, Stable Joints Without Laxity and Good ROM in All Joints Neurological: Positive Sensation Intact, Motor intact, Alert and Oriented Labs This Visit Labs This Visit: Labs This Visit 12/04/23 12/04/23 12/04/23 15:26 15:32 16:11 WBC 9.38 RBC 3.97 L Hgb 10.6 L Hct 32.0 L MCV 80.6 L MCH 26.7 L MCHC 33.1 RDW Coeff of Mckenna 14.4 Plt Count 381 Immature Gran % (Auto) 0.3 Neut % (Auto) 79.0 H Lymph % (Auto) 11.5 Trigg % (Auto) 8.7 Eos % (Auto) 0.1 Baso % (Auto) 0.4 Neut # (Auto) 7.4 H Lymph # (Auto) 1.1 Trigg # (Auto) 0.8 Eos # (Auto) 0.0 Baso # (Auto) 0.0 Immature Gran # (Auto) 0.0 Sodium 122.4 L Potassium 4.04 Chloride 88.5 L Carbon Dioxide 25.8 Anion Gap 12.14 BUN 4.5 L Creatinine 0.73 Estimated GFR (MDRD) 80.00 BUN/Creatinine Ratio 6.16 Glucose 117.7 H Calcium 9.45 Total Bilirubin 0.48 AST 93.1 H ALT 51.8 H Alkaline Phosphatase 71.9 Total Protein 8.01 Albumin 4.40 Globulin 3.61 Albumin/Globulin Ratio 1.21 Urine Color Yellow Urine Clarity Clear Urine pH 6.0 Ur Specific [place] 1.025 Urine Protein 1+ H Urine Glucose (UA) Negative Urine Ketones Negative Urine Blood Trace-intact H Urine Nitrite Negative Urine Bilirubin Negative Urine Urobilinogen 0.2 Ur Leukocyte Esterase Negative Urine Microscopic RBC 2-5 Ur Squamous Epith Cells 2-5 Hyaline Casts 5-10 Urine Mucus 2+ Plasma/Serum Alcohol < 10.0 SARS CoV-2 RNA Rapid NICKI Negative 12/04/23 12/05/23 20:05 05:08 WBC 6.00 RBC 3.75 L Hgb 9.8 L Hct 31.1 L MCV 82.9 MCH 26.1 L MCHC 31.5 L RDW Coeff of Mckenna 14.5 Plt Count 373 Immature Gran % (Auto) 0.3 Neut % (Auto) 51.1 Lymph % (Auto) 34.0 Trigg % (Auto) 13.0 H Eos % (Auto) 0.8 Baso % (Auto) 0.8 Neut # (Auto) 3.1 Lymph # (Auto) 2.0 Trigg # (Auto) 0.8 Eos # (Auto) 0.1 Baso # (Auto) 0.1 Immature Gran # (Auto) 0.0 Sodium 125.6 L 129.7 L Potassium 3.90 3.80 Chloride 93.0 L 97.7 L Carbon Dioxide 27.4 27.7 Anion Gap 9.10 8.10 BUN 4.8 L 3.9 L Creatinine 0.74 0.71 Estimated GFR (MDRD) 79.00 83.00 BUN/Creatinine Ratio 6.48 5.49 Glucose 100.2 87.5 Calcium 9.11 8.76 Total Bilirubin 0.50 AST 85.3 H ALT 42.8 H Alkaline Phosphatase 60.7 Total Protein 6.98 Albumin 3.71 Globulin 3.27 Albumin/Globulin Ratio 1.13 Urine Color Urine Clarity Urine pH Ur Specific [place] Urine Protein Urine Glucose (UA) Urine Ketones Urine Blood Urine Nitrite Urine Bilirubin Urine Urobilinogen Ur Leukocyte Esterase Urine Microscopic RBC Ur Squamous Epith Cells Hyaline Casts Urine Mucus Plasma/Serum Alcohol SARS CoV-2 RNA Rapid NICKI Review Statement Review Statement: I have independently reviewed and interpreted the labs/EKGs/imaging that were ordered by the ER provider. I have reviewed all outside records that are available currently in our EMR including imaging/notes/labs from previous visits. Plan Plan: 1. Acute Symptomatic Hyponatremia - osmolalities ordered, trending up at this time, continue NS@125mL/hr, repeat bmp at 1200 2. Viral Gastroenteritis - no fever, WBC count, or other indications of infectious etiology; symptomatic treatment - zofran, clear liquid diet, protonix 3. ETOH Abuse - (drinks 9 beers daily - last drink over 24 hours ago) monitor for signs of withdrawal with CIWA scale, lorazepam prn based on score 4. Elevated liver enzymes - appears chronic based on labs due to ETOH abuse, monitor for worsening 5. Hypertension - chronic, continue home medications DVT Prophylaxis: Ambulation Time Spent: Greater than 80 minutes spent with patient, 50% of the time spent with this patient was devoted to counseling and coordination of care. [facility] Plannin minutes spent discussing advance care planning. Disposition: Discussed sending patient home after sodium normalizes. States that she is concerned to go home and be by herself due to continued weakness. Discussed we would observe for another night and determine if able to d/c tomorrow. Admit to: Med/Surg Observation Full Code Discussed Plan of Care with Dr. Morenita Crowe. Medications Medication Orders: Medications Ordered Category Date Time Status Albuterol Sulfate [Ventolin Hfa] Meds 12/04/23 21:56 Active 2 puff IH QID PRN Aspirin [Aspirin EC] Meds 12/06/23 07:30 Active 81 mg PO DAILYWM2 Atorvastatin Calcium [Lipitor] Meds 12/05/23 09:00 Active 40 mg PO DAILY Cholecalciferol (Vitamin D3) [Vitamin D] Meds 12/05/23 09:00 Active 2,000 unit PO DAILY Escitalopram Oxalate [Lexapro] Meds 12/05/23 09:00 Active 5 mg PO DAILY Folic Acid Meds 12/05/23 09:00 Active 1 mg PO DAILY Lorazepam [Ativan] Meds 12/04/23 22:52 Active 1 mg IVP Q2HR PRN Lorazepam [Ativan] Meds 12/04/23 22:52 Active 1 mg PO Q2HR PRN Lorazepam [Ativan] Meds 12/04/23 22:52 Active 2 mg IVP Q1HR PRN Lorazepam [Ativan] Meds 12/04/23 22:52 Active 2 mg PO Q1HR PRN Losartan Potassium [Cozaar] Meds 12/05/23 21:00 Active 50 mg PO BID Multivitamin [Multivitamin Tablet] Meds 12/05/23 09:00 Active 1 tab PO DAILY Ondansetron HCl/Pf [Zofran 4 mg/2 ml] Meds 12/04/23 16:06 Active 4 mg IVP Q6H PRN Pantoprazole Sodium [Protonix] Meds 12/05/23 08:00 Active 40 mg PO BIDAC2 Saccharomyces Boulardii [Florastor] Meds 12/05/23 09:00 Active 250 mg PO DAILY Sodium Chloride 0.9% [Sodium Chloride] 1,000 ml Meds 12/04/23 16:30 Active IV 125 mls/hr Vitamin B-1 [Thiamine] Meds 12/05/23 09:00 Active 100 mg PO DAILY
[2023-12-05] MEDS: NICODERM 21 MG TD SCH (10:17)
[2023-12-05 12:18] LABS: BLOOD UREA NITROGEN 3.9 mg/dL (7-17); CALCIUM 8.45 mg/dL (8.4-10.2); CARBON DIOXIDE 25.3 mmol/L (22-30.0); CHLORIDE 100.1 mmol/L (98-107); CREATININE 0.66 mg/dL (0.60-1.30); POTASSIUM 3.97 mmol/L (3.5-5.1); SODIUM 129.2 mmol/L (134.5-145)
[2023-12-05 18:15] LABS: BLOOD UREA NITROGEN 2.8 mg/dL (7-17); CALCIUM 8.37 mg/dL (8.4-10.2); CARBON DIOXIDE 25.2 mmol/L (22-30.0); CHLORIDE 99.9 mmol/L (98-107); CREATININE 0.65 mg/dL (0.60-1.30); GLUCOSE 123.9 mg/dL (74-106); POTASSIUM 3.41 mmol/L (3.5-5.1); SODIUM 129.3 mmol/L (134.5-145)
[2023-12-05] MEDS: K-DUR PO ONE (19:18)
[2023-12-05] MEDS: COZAAR PO SCH (20:14)
[2023-12-05] MEDS: SODIUM CHLORIDE PO SCH (23:04)
[2023-12-05] MEDS: BENADRYL PO STA (23:04)
[2023-12-06 01:13] VITALS: PULSE 83
[2023-12-06 04:23] VITALS: BP 169/78; RESP 20; TEMP 97.5
[2023-12-06 05:32] LABS: BASOPHILS # (AUTO) 0.1 K/uL (0-0.2); BASOPHILS % (AUTO) 0.9 % (0.0-3.0); EOSINOPHILS # (AUTO) 0.1 K/ul (0.0-0.7); EOSINOPHILS % (AUTO) 1.5 % (0.0-7.0); HEMATOCRIT 30.8 % (37.0-47.0); HEMOGLOBIN 9.6 g/dl (12.0-16.0); IMMATURE GRANULOCYTE % (AUTO) 0.2 % (0.0-5.0); LYMPHOCYTES # (AUTO) 2.5 K/uL (0.60-3.4); LYMPHOCYTES % (AUTO) 36.9 (10.0-50.0); MEAN CORPUSCULAR HEMOGLOBIN 26.1 pg (27.0-31.0); MEAN CORPUSCULAR HGB CONC 31.2 (31.8-35.4); MEAN CORPUSCULAR VOLUME 83.7 fl (81.0-99.0); MONOCYTES # (AUTO) 0.7 K/uL (0.4-2.0); MONOCYTES % (AUTO) 9.8 (0-10); NEUTROPHILS # (AUTO) 3.4 K/ul (2.0-6.9); NEUTROPHILS % (AUTO) 50.7 % (42.2-75.2); PLATELET COUNT 373 10^3/uL (140-440); RDW COEFFICIENT OF VARIATION 14.5 % (11.6-14.8); RED BLOOD COUNT 3.68 10^6/ul (4.20-5.40); WHITE BLOOD COUNT 6.66 K/ul (4.6-10.2)
[2023-12-06 05:44] LABS: ALANINE AMINOTRANSFERASE 36.2 U/L (0-35); ALBUMIN 3.75 g/dL (3.5-5.0); ALKALINE PHOSPHATASE 56.9 U/L (53-141); ASPARTATE AMINO TRANSFERASE 70.5 U/L (14-36); CALCIUM 8.57 mg/dL (8.4-10.2); CARBON DIOXIDE 25.8 mmol/L (22-30.0); CHLORIDE 101.9 mmol/L (98-107); CREATININE 0.61 mg/dL (0.60-1.30); GLUCOSE 88.3 mg/dL (74-106); POTASSIUM 3.82 mmol/L (3.5-5.1); SODIUM 131.9 mmol/L (134.5-145); TOTAL PROTEIN 7.12 g/dL (6.3-8.2)
[2023-12-06 05:57] LABS: BLOOD UREA NITROGEN < 2.0 mg/dL (7-17)
[2023-12-06] MEDS: ASPIRIN EC PO SCH (08:23)
--- NOTE | 2023-12-06 09:52 | DCSUM ---
Admission Date Admission Date: 12/04/23 Discharge Date Discharge Date: 12/06/23 Admission Diagnosis Admission Diagnosis: 1. Acute Symptomatic Hyponatremia 2. Viral Gastroenteritis 3. ETOH Abuse 4. Elevated liver enzymes 5. Hypertension Discharge Diagnosis Discharge Diagnosis: 1. Acute Symptomatic Hyponatremia - Resolved, at baseline level 2. Viral Gastroenteritis - Improving 3. ETOH Abuse - Chronic 4. Elevated liver enzymes - Chronic, stable 5. Hypertension - Chronic, stable Hospital Provider Hospital Provider: TWYLA NGUYEN, [facility] [place] Phys[place] Primary Care Physician: NAVA CHENEY MD Summary of History and Physical Summary of History and Physical: 63 yo female presented to the ER with complaints of weakness. Has pmh of etoh abuse. Reports that yesterday she developed sudden onset N/V/D. Had some muscle pain in lower abdomen from vomiting when she came in. Sodium was found to be 122. Patient states she has not had abdominal pain since, no fever, or other symptoms. States that she is still somewhat nauseated from time to time and has no appetite. Also suffers from GERD and takes carafate and prilosec. Denies any blood in vomit or stool. Admitted to med/surg observation. Hospital Course Subjective: During course of stay, patient was treated for hyponatremia with NS@125mL/hr. Urine and serum osmolalities were obtained. Likely cause viral gastroenteritis. Sodium went from 122 up to 131 today. Weakness resolved and patient reports feeling much better. Patient voiced that she has had recent episodes of dark stools. Has pmh of ulcers and takes prilosec and carafate. Started on protonix bid. No further episodes of vomiting during stay. Some episodes of diarrhea still. No fever or wbc. Denied bloody stools. D/c home with protonix bid and encouraged to follow- up with GI if dark stools persist. Discussed with patient discharge plan and reports that son would be present shortly to ask questions. Son reported that the whole purpose of bringing the patient to the hospital was to "detox from alcohol". He has attempted getting her into a rehab facility and no where would take her prior to a 3 day detox. This was not communicated to me until today. Patient does not wish to go to rehab and is oriented x3. Patient reports she drank excessively on , had 2 beers on Thursday morning but then began vomiting and had diarrhea. No alcohol was noted to be in her system on admission. She did not exhibit signs of withdrawal and states she has felt fine other than feeling weak. Son reported he was concerned to take her home due to the fact that she would start drinking again or go into withdrawal. Discussed that patient has been in this facility since Thursday afternoon and has not exhibited any signs of withdrawal and no medical need for patient to stay here any longer. Also was discussed that it is the patient's decision to sign in and out of a rehab facility and she had the right to do so. Son also wanted us to get her admitted to rehab facility which is not a process that we are able to complete and he would likely have to reach out tomorrow. Verbalized understanding. Appearance: Pleasant, No Apparent Distress and Alert HEENT: MMM, Supple and No JVD CVS: No Murmur Abdomen: Soft and No Distention Respiratory: No Dyspnea Extremities: No Edema Additional Findings: CIWA negative Vital Signs: Most Recent Vital Signs Temperature 97.5 F L 12/06/23 04:14 Temperature Source Oral 12/06/23 04:14 Temperature Source Infrared 12/04/23 15:03 Pulse Rate 83 12/06/23 04:14 Respiratory Rate 20 12/06/23 04:14 Blood Pressure 169/78 H 12/06/23 04:14 Blood Pressure Mean 108 12/06/23 04:14 Blood Pressure Left Arm 163/74 12/04/23 16:54 Blood Pressure Location Left Arm 12/06/23 04:14 Blood Pressure Position Supine 12/06/23 04:14 O2 Sat by Pulse Oximetry 98 12/06/23 04:14 Oxygen Delivery Method Room Air 12/06/23 08:48 Height 5 ft 8 in 12/04/23 16:54 Weight 139 lb 12/04/23 17:26 Telemetry Type Remote Telemetry 12/06/23 07:00 Telemetry Monitoring Continues 12/06/23 07:00 Telemetry Heart Rate 70 12/06/23 07:00 EKG ME Interval 0.23 H 12/06/23 07:00 EKG QRS Interval 0.04 L 12/06/23 07:00 Telemetry Strip Reading SR with 1 AVB 12/06/23 07:00 Lab Results Last 24 Hours: 12/06/23 12/05/23 12/05/23 05:26 18:02 12:04 WBC 6.66 RBC 3.68 L Hgb 9.6 L Hct 30.8 L MCV 83.7 MCH 26.1 L MCHC 31.2 L RDW Coeff of Mckenna 14.5 Plt Count 373 Immature Gran % (Auto) 0.2 Neut % (Auto) 50.7 Lymph % (Auto) 36.9 Pine % (Auto) 9.8 Eos % (Auto) 1.5 Baso % (Auto) 0.9 Neut # (Auto) 3.4 Lymph # (Auto) 2.5 Pine # (Auto) 0.7 Eos # (Auto) 0.1 Baso # (Auto) 0.1 Immature Gran # (Auto) 0.0 Sodium 131.9 L 129.3 L 129.2 L Potassium 3.82 3.41 L 3.97 Chloride 101.9 99.9 100.1 Carbon Dioxide 25.8 25.2 25.3 Anion Gap 8.02 7.61 7.77 BUN < 2.0 L 2.8 L 3.9 L Creatinine 0.61 0.65 0.66 Estimated GFR (MDRD) 98.00 91.00 90.00 BUN/Creatinine Ratio 3.27 4.30 5.90 Glucose 88.3 123.9 H 89.0 Calcium 8.57 8.37 L 8.45 Magnesium Total Bilirubin 0.40 AST 70.5 H ALT 36.2 H Alkaline Phosphatase 56.9 Total Protein 7.12 Albumin 3.75 Globulin 3.37 Albumin/Globulin Ratio 1.11 12/05/23 05:08 WBC RBC Hgb Hct MCV MCH MCHC RDW Coeff of Mckenna Plt Count Immature Gran % (Auto) Neut % (Auto) Lymph % (Auto) Pine % (Auto) Eos % (Auto) Baso % (Auto) Neut # (Auto) Lymph # (Auto) Pine # (Auto) Eos # (Auto) Baso # (Auto) Immature Gran # (Auto) Sodium Potassium Chloride Carbon Dioxide Anion Gap BUN Creatinine Estimated GFR (MDRD) BUN/Creatinine Ratio Glucose Calcium Magnesium 1.90 Total Bilirubin AST ALT Alkaline Phosphatase Total Protein Albumin Globulin Albumin/Globulin Ratio Discharge Instructions Discharge Planning: Discharge Planning > 40 minutes If patient is discharged with left ventricular systolic dysfunction: NA Discharged with a beta kuldeep? [] If no, why not? [] Discharged with an ray/arb? [] If no, why not? [] Diagnosis: Acute Hyponatremia, Viral Gastroenteritis, ETOH abuse Diet: Regular Activity: as tolerated Follow-up with PCP this week. Refer to GI if dark stools persist. Medications: Protonix 40 mg twice a day, Zofran 4 mg every 6 hour as needed for nausea Medically cleared for detox/rehab. Discharge Medications: Medications at Discharge (Home Meds & RX) aspirin 81 mg tablet,delayed release 81 mg PO DAILY 01/26/15 omeprazole 20 mg capsule,delayed release 20 mg PO DIRECTED PRN Abdominal Discomfort 09/24/18 albuterol sulfate 90 mcg/actuation aerosol inhaler (ProAir HFA) 8.5 g inhalation 3-4XD PRN Wheezing 11/29/19 folic acid 1 mg tablet 1 mg PO QDAY 03/10/22 multivitamin 1 tab PO QAM 03/10/22 vitamin B complex (B Complex-Vitamin B12 tablet) 1 tab PO QDAY 03/10/22 escitalopram oxalate 5 mg tablet See Rx Instructions .Route .COMPLEX #90 tabs 12/22/22 atorvastatin 40 mg tablet 40 mg PO QDAY #90 tabs 01/20/23 thiamine HCl (vitamin B1) 100 mg tablet 100 mg PO QDAY #90 tabs 01/20/23 cholecalciferol (vitamin D3) 50 mcg (2,000 unit) capsule 50 mcg PO QDAY 07/20/23 losartan 50 mg tablet See Rx Instructions .Route .COMPLEX #180 tabs 10/12/23 Lactobacillus acidophilus 10 billion cell capsule (Probiotic) 100 mmu cells PO DAILY 12/04/23 Discharge Plan Discharge Discharge Orders: Discharge Patient (ONCE); Ordered 12/06/23 Ordered By: MACY DENG Activity Restrictions/Additional Instructions: Diagnosis: Acute Hyponatremia, Viral Gastroenteritis, ETOH abuse Diet: Regular Activity: as tolerated Follow-up with PCP this week. Refer to GI if dark stools persist. Medications: Protonix 40 mg twice a day, Zofran 4 mg every 6 hour as needed for nausea Medically cleared for detox/rehab. Instructions: Hyponatremia (GEN), Gastroenteritis (GEN), Abuse of Alcohol (GEN) Care Plan Goals: Problem: Fluid and electrolyte imbalance Goal: Maintain fluid and electrolyte balance Instructions: Monitor I/O as needed Obtain labs related to electrolytes Patient Disposition: HOME WITH FAMILY CARE Prescriptions: New ondansetron 4 mg tablet,disintegrating 4 mg PO Q6H PRN (Reason: nausea and vomiting) Qty: 30 0RF pantoprazole 40 mg tablet,delayed release (DR/EC) 40 mg PO BID Qty: 60 0RF Continued aspirin 81 MG tablet,delayed release (DR/EC) 81 mg PO DAILY omeprazole 20 MG capsule,delayed release(DR/EC) 20 mg PO DIRECTED PRN (Reason: Abdominal Discomfort) escitalopram oxalate 5 mg tablet See Rx Instructions .ROUTE .COMPLEX Qty: 90 3RF Dose Instruction: TAKE ONE TABLET DAILY Rx Instructions: TAKE ONE TABLET DAILY thiamine HCl (vitamin B1) 100 mg tablet 100 mg PO QDAY Qty: 90 3RF atorvastatin 40 mg tablet 40 mg PO QDAY Qty: 90 3RF losartan 50 mg tablet See Rx Instructions .ROUTE .COMPLEX Qty: 180 1RF Dose Instruction: TAKE ONE TABLET TWICE DAILY Rx Instructions: TAKE ONE TABLET TWICE DAILY albuterol sulfate [ProAir HFA] 8.5 GM HFA aerosol inhaler 8.5 g inhalation 3-4XD PRN (Reason: Wheezing) Probiotic 10 billion cell capsule 100 mmu cells PO DAILY vitamin B complex [B Complex-Vitamin B12] Tablet 1 tab PO QDAY multivitamin Tablet 1 tab PO QAM folic acid 1 mg tablet 1 mg PO QDAY cholecalciferol (vitamin D3) 50 mcg (2,000 unit) capsule 50 mcg PO QDAY Did you review [place] [employer] for ALL controlled substances?: No Discussed opioids are addictive and Narcan is available by prescription or from pharmacy.: No Condition: Stable
[2023-12-06 15:13] LABS: OSMOLALITY,URINE 352 mOsmol/kg (.)
[2023-12-07 14:10] LABS: SERUM OSMOLALITY 250 mOsmol/kg (280-301)
== END 2023-12-06 10:10 | disposition home or self-care (01) ==
LOC: MEDSURG B 14:43 → ED 14:43 → MEDSURG B 16:58
PROVIDERS: ADMIT Hospitalist; ATTEND Nurse Practitioner Family
DX: Z20.822 Contact with and (suspected) exposure to COVID-19; Z51.81 Encounter for therapeutic drug level monitoring; R74.01 Elevation of levels of liver transaminase levels; A08.4 Viral intestinal infection, unspecified; E87.1 Hypo-osmolality and hyponatremia; F41.9 Anxiety disorder, unspecified; E78.5 Hyperlipidemia, unspecified; K21.9 Gastro-esophageal reflux disease without esophagitis; F10.20 Alcohol dependence, uncomplicated; Z79.899 Other long term (current) drug therapy; I10 Essential (primary) hypertension; F17.210 Nicotine dependence, cigarettes, uncomplicated; M62.81 Muscle weakness (generalized)